=== PATIENT | male | born 2000 | race Caucasian/White ===

== ENCOUNTER 2018-11-13 16:25 | Emergency (ER) | payer OTHER, MEDICAID ==
[~2018-11-13] VITALS: Ht 180.3 cm; Wt 71.7 kg
[2018-11-13 16:29] VITALS: Ht 180.3 cm; Wt 71.7 kg
[2018-11-13 19:16] VITALS: BP 108/59
== END 2018-11-13 19:16 | disposition home or self-care (01) ==
LOC: ED 16:25
DX: R51 Headache (principal); R53.83 Other fatigue; R11.0 Nausea
CPT/HCPCS: Q0162